=== PATIENT | female | born 1950 | race Caucasian/White ===

== ENCOUNTER 2019-02-18 18:27 | Emergency (ER) | payer OTHER ==
[2019-02-18 18:41] VITALS: TEMP 97.1
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
[2019-02-18 19:42] VITALS: BP 161/98; PULSE 98; RESP 16
== END 2019-02-18 19:43 | disposition home or self-care (01) ==
LOC: EC 18:27
DX: Z04.1 Encounter for examination and observation following transport accident (principal); Z79.84 Long term (current) use of oral hypoglycemic drugs; Z79.899 Other long term (current) drug therapy; Z88.1 Allergy status to other antibiotic agents; Z88.8 Allergy status to other drugs, medicaments and biological substances; V43.92XA Unspecified car occupant injured in collision with other type car in traffic accident, initial encounter; Y92.410 Unspecified street and highway as the place of occurrence of the external cause
CPT/HCPCS: 99284

== ENCOUNTER → 2020-05-20 | Outpatient (CLI) | payer OTHER ==
--- NOTE | 2020-05-21 20:05 | MR ---
EXAMINATION TYPE: MR lumbar spine wo con DATE OF EXAM: 05/20/2020 COMPARISON: NONE HISTORY: LBP, BLE left greater than right radiculopathy, and falls per patient. Bilateral foot drop p er order. TECHNIQUE: Multiplanar, multisequence imaging of the lumbar spine is performed without IV contrast. FINDINGS: Sagittal images of the lumbar spine show vertebral body heights and alignment to appear sat isfactory. Multilevel disc desiccation with disc space heights fairly well maintained. Mild multileve l anterior spurring. The conus medullaris is normal in position and signal ending upper to mid L1 lev el. The bone marrow signal intensity is within normal limits. Axial images show the T12-L1, L1-L2, and L2-L3 levels all to appear within normal limits. Axial images at the L3-L4 level show mild facet degenerative changes bilaterally. Axial images at the L4-L5 level show mild to moderate facet degenerative changes and ligamentum flavu m hypertrophy with mild broad disc bulge that has left foraminal disc protrusion component causing as ymmetric moderate left-sided inferior neural foraminal narrowing encroaching on exiting left L4 nerve axial image 11 and sagittal image 3. Axial images at L5-S1 level show [id number] facet degenerative changes bilaterally. There is an nular tear with tiny central disc protrusion minimally effacing anterior thecal sac. There is mild le ft-sided neural foraminal narrowing. Paraspinal muscle bulk is fairly well maintained. IMPRESSION: Fairly mild multilevel degenerative changes in the lumbar spine as detailed above. Attent ion to L4-L5 level where disc herniation is believed to be encroaching on exiting left L4 nerve.
== END | disposition home or self-care (01) ==
LOC: RADMRIMAIN 09:00
PROVIDERS: ATTEND Family Medicine
DX: M51.26 Other intervertebral disc displacement, lumbar region (principal); M47.816 Spondylosis without myelopathy or radiculopathy, lumbar region
CPT/HCPCS: 72148

== ENCOUNTER 2021-01-17 15:50 | Emergency (ER) | payer MEDICARE, OTHER ==
[2021-01-17 16:14] VITALS: RESP 18; TEMP 98.6
[2021-01-17] MEDS ORDERED: AMOXIC-POT CLAV 875-125MG 1 EACH TAB PO STA (17:37)
--- NOTE | 2021-01-17 17:47 | ED ---
Animal Bite HPI - General Chief Complaint: Animal Bite Stated Complaint: Dog Bite Time Seen by Provider: 01/17/21 17:02 Source: patient Mode of arrival: wheelchair Limitations: no limitations - History of Present Illness Initial Comments: 70-year-old male presents to emergency room with a chief complaint of dog bite. States this occurred about 2 hours prior to arrival. States her daughter's dog bit her on the lateral aspect of her right leg. Patient reports there was some bleeding which is since resolved. States she has full range of motion in the right foot and ankle. Reports some pain with palpation to the region. Denies taking medication to alleviate the symptoms. States her tetanus is up-to-date. Animal: dog Description: household pet Mechanism: bite Pain Description: sharp Severity scale (1-10): 5 Context: unprovoked Associated Symptoms: none - Related Data Home Medications Medication Instructions Recorded Confirmed B,C/Folic/Zinc/Copper Ox/Vit E 1 tab PO DAILY 02/18/19 02/18/19 [Stress B-Complex Tablet] Thyroid,Pork [[place] Thyroid] 90 mg PO DAILY 02/18/19 02/18/19 metFORMIN HCL [Glucophage] 1,000 mg PO BID 02/18/19 02/18/19 Previous Rx's Medication Instructions Recorded Amoxicillin/Potassium Clav 1 tab PO Q12HR #20 tab 01/17/21 [Augmentin 875-125 Tablet] Allergies Allergy/AdvReac Type Severity Reaction Status Date / Time thimerosal Allergy Unknown Verified 01/17/21 16:12 ciprofloxacin [From Cipro] AdvReac Nausea & Verified 01/17/21 16:12 Vomiting Review of Systems ROS Statement: Those systems with pertinent positive or pertinent negative responses have been documented in the HPI. ROS Other: All systems not noted in ROS Statement are negative. Past Medical History Past Medical History: No Reported History History of Any Multi-Drug Resistant Organisms: None Reported Past Surgical History: No Surgical Hx Reported Past Psychological History: No Psychological Hx Reported Smoking Status: Never smoker Past Alcohol Use History: None Reported Past Drug Use History: None Reported General Exam Limitations: no limitations Course Vital Signs 01/17/21 01/17/21 16:10 18:02 Temperature 98.6 F Pulse Rate 105 H 82 Respiratory 18 18 Rate Blood Pressure 193/87 144/86 O2 Sat by Pulse 98 97 Oximetry Medical Decision Making - Medical Decision Making 70-year-old female presents to emergency Department with a chief complaint of a dog bite. On physical examination, patient has 2 puncture wounds on the lateral aspect of the right lower leg. Area was thoroughly cleaned with alcohol. patient was started on Augmentin. Will be discharged 10 day course of Augmentin. Dressing applied to the wound. Return panel discussed the patient was icing and agreeable. Case discussed with Dr. Lopez. Disposition Clinical Impression: Bite by animal, Dog bite Disposition: HOME SELF-CARE Condition: Stable Instructions (If sedation given, give patient instructions): Animal Bite (ED) Additional Instructions: take prescribed medication as directed. Follow with primary care physician. Return to emergency department if symptoms worsen. Prescriptions: Amoxicillin/Potassium Clav [Augmentin 875-125 Tablet] 1 tab PO Q12HR #20 tab Is patient prescribed a controlled substance at d/c from ED?: No Referrals: Sarath Almaguer DO [Primary Care Provider] - 1-2 days Time of Disposition: 17:46
[2021-01-17 18:02] VITALS: BP 144/86; PULSE 82
== END 2021-01-17 18:02 | disposition home or self-care (01) ==
LOC: EC 15:50
DX: S81.831A Puncture wound without foreign body, right lower leg, initial encounter (principal); Z88.1 Allergy status to other antibiotic agents; Z88.8 Allergy status to other drugs, medicaments and biological substances; W54.0XXA Bitten by dog, initial encounter
CPT/HCPCS: 99283